=== PATIENT | male | born 1970 | race Caucasian/White ===

== ENCOUNTER 2018-12-08 23:03 | Emergency (ER) | payer BC, MEDICAID ==
[2018-12-08 23:34] VITALS: BP 154/115; PULSE 101
--- NOTE | 2018-12-08 23:48 | EDM.PDOC ---
ED HPI GENERAL MEDICAL PROBLEM - General Chief Complaint: Respiratory Problem Stated Complaint: COUGH,SINUS,FEVER,BODY ACHES Time Seen by Provider: 12/08/18 23:20 Source of Information: Reports: Patient History Limitations: Reports: No Limitations - History of Present Illness INITIAL COMMENTS - FREE TEXT/NARRATIVE: 48-year-old male who was had a cough and cold for the past several days, missed a few days of work but feels better today and is intending on going back to work tomorrow. Apparently he needs a note that he is physically able to go back to work. He's had some low-grade fevers but that is resolved. Some nasal congestion also improving. Associated Symptoms: Reports: Cough, Fever/Chills, Other (Nasal congestion) genralized Pain Score (Numeric/FACES): 2 - Related Data Allergies Allergy/AdvReac Type Severity Reaction Status Date / Time No Known Allergies Allergy Verified 12/08/18 23:23 Home Meds: Home Meds NK [No Known Home Meds] 12/08/18 [History] Past Medical History Cardiovascular History: Reports: Hypertension Musculoskeletal History: Reports: Fracture Other Musculoskeletal History: shattered heel Endocrine/Metabolic History: Reports: Obesity/BMI 30+ - Past Surgical History GI Surgical History: Reports: Hernia, Abdominal Musculoskeletal Surgical History: Reports: Other (See Below) Other Musculoskeletal Surgeries/Procedures:: left ankle surgery Social & Family History - Tobacco Use Smoking Status *Q: Current Every Day Smoker Years of Tobacco use: 15 Packs/Tins Daily: 1 - Caffeine Use Caffeine Use: Reports: Coffee, Energy Drinks, Soda - Recreational Drug Use Recreational Drug Use: No ED ROS GENERAL - Review of Systems Review Of Systems: See Below Constitutional: Reports: Fever, Chills, Malaise HEENT: Reports: Rhinitis Respiratory: Reports: Shortness of Breath, Cough GI/Abdominal: Denies: Nausea, Vomiting Skin: Denies: Rash ED EXAM, GENERAL - Physical Exam Exam: See Below Exam Limited By: No Limitations General Appearance: Alert, No Apparent Distress Throat/Mouth: Normal Inspection Head: Atraumatic Respiratory/Chest: No Respiratory Distress, Lungs Clear Neurological: Alert, Oriented Skin Exam: Warm, Dry Course - Vital Signs Last Recorded V/S: Last Vital Signs Temp 99 F 12/08/18 23:25 Pulse 101 H 10/12/19 23:25 Resp 20 12/08/18 23:25 BP 154/115 H 12/08/18 23:25 Pulse Ox 96 12/08/18 23:25 - Re-Assessments/Exams Free Text/Narrative Re-Assessment/Exam: 12/08/18 23:47 The patient appears to have a respiratory cold which is improving. I do think he can return to work tomorrow as long as he remains afebrile. A note was given. Departure - Departure Time of Disposition: 23:49 Disposition: Home, Self-Care 01 Clinical Impression: Viral URI with cough - Discharge Information Instructions: Viral Respiratory Infection, [id number] Referrals: PCP,None [Primary Care Provider] - Forms: ED Department Discharge Additional Instructions: Okay to return to work tomorrow as long as you are not worsening such as persistent fever or difficulty breathing.
== END 2018-12-08 23:52 | disposition home or self-care (01) ==
LOC: JP.ED 23:03
DX: J06.9 Acute upper respiratory infection, unspecified (principal); I10 Essential (primary) hypertension; E66.9 Obesity, unspecified; Z68.34 Body mass index [BMI] 34.0-34.9, adult; F17.210 Nicotine dependence, cigarettes, uncomplicated
CPT/HCPCS: 99283